=== PATIENT | female | born 1990 | race Caucasian/White ===

== ENCOUNTER 2024-01-17 10:09 | Emergency (ER) | payer OTHER, SELFPAY ==
--- NOTE | 2024-01-17 10:13 | ED.SKABFB ---
HPI - Skin/Abscess/Foreign Bdy General Chief complaint: Skin/Abscess/Foreign Body Stated complaint: ABSCESS Time Seen by Provider: 01/17/24 10:12 Source: patient Mode of arrival: ambulatory Limitations: no limitations History of Present Illness HPI narrative: Jaqueline is a 33-year-old female patient presenting to the clinic today with complaints of an abscess to her left lower glute area. She reports that this has been going on for a couple days now. She has been applying warm compresses and taking Tylenol Motrin as needed for pain. Thought that it may a rubbed on its own however is not started draining yet. Related Data Allergies Allergy/AdvReac Type Severity Reaction Status Date / Time No Known Allergies Allergy Verified 01/17/24 10:57 Review of Systems Review of Systems: Pertinent positives per HPI. Patient denies any fever, chills, rash, headache, visual changes, dizziness, cough, runny nose, sore throat, shortness of breath, chest pain, palpitations, nausea, vomiting, diarrhea, constipation, abdominal pain, or any urinary issues. PMFSH Comments At the time of my signature, I reviewed and agree with the nursing past medical, surgical, social, and family history. There is no relevant family history pertinent to the patient complaint. Exam Narrative: General: Well-developed, well nourished, in no apparent distress Head: Normocephalic, atraumatic. Cardio: Regular rate and rhythm, s1 and s2 normal, no murmur appreciated. Resp: Clear to auscultation bilaterally, no rhonchi, rales, wheezing or rubs. Integumentary: [place], warm, and dry, 2 x 3 cm abscess to the left inner lower glut. Large pustular lesion to the top of the abscess. Incision and drainage was performed and wound culture was obtained Course Course Emergency Course: Portions of this record may have been created with voice recognition software. Level of Care: Express Care Visit Vital Signs Vital signs: Vital Signs Temperature 36.3 C L 01/17/24 10:22 Pulse Rate 108 H 01/17/24 10:22 Respiratory Rate 16 01/17/24 10:22 Blood Pressure 127/92 H 01/17/24 10:22 Pulse Oximetry 99 01/17/24 10:22 Temperature 36.3 C L 01/17/24 10:22 Pulse Rate 108 H 01/17/24 10:22 Respiratory Rate 16 01/17/24 10:22 Blood Pressure 127/92 H 01/17/24 10:22 Pulse Oximetry 99 01/17/24 10:22 Vital signs reviewed Procedures Abscess I/D mireya-rectal: Date of Incision: 01/17/24 Side (if applicable): left (Glutual) Local Anesthetic: lidocaine 1% Amount of anesthesia used (mL): 2 Technique: incised with #11 blade Amount of fluid expressed (mL): 2 Irrigation: No Packing used?: none I&D Results: Pus and Blood Complications: other (None) Abcess I&D Additional Comments: Verbal consent obtained for incision and drainage. Risk and benefits explained and patient voiced understanding. Area was cleansed with antiseptic wound wash. Area was prepped and draped using sterile technique. 27 gauge needle was then used to instill (2) ml of lidocaine with epi into the wound edges. Patient tolerated well and anesthesia was appropriate. An 11 blade scalpel was then used to make a 0.5cm incision over the abscess. White bloody exudate expressed from cavity. Wound culture obtained and sent to lab. Patient tolerated procedure well. MDM - Skin/Abscess/Foreign Bdy MDM Narrative Medical decision making narrative: At the time of visit patient is resting comfortably on the exam table. Patient appears to be nontoxic. Procedures: Incision and drainage of abscess was performed. Wound culture was obtained and sent to the lab Plan: Incision and drainage was performed in the clinic to open gluteal abscess. Prescription for Augmentin was sent to the pharmacy. Recommend a wound check in 3 days Supportive measures were discussed with the patient and they voiced understanding discharge instructions and agr
[2024-01-17 10:22] VITALS: BP 127/92; PULSE 108; RESP 16; TEMP 36.3; O2SAT 99
[2024-01-17] MEDS: LIDOCAINE HCL 1% LOCAL INJ 2 ML AMPUL 10 ML INFILTRATE (10:43)
== END 2024-01-17 11:00 | disposition home or self-care (01) ==
PROVIDERS: Emergency Provider Nurse Practitioner Family; PCP Family Medicine
DX: L02.31 Cutaneous abscess of buttock (principal)
CPT/HCPCS: 10060; 87070; 87075; 87205; 99203; G0463; J2003

== ENCOUNTER 2024-05-15 11:07 | Outpatient (CLI) | payer OTHER, SELFPAY ==
--- NOTE | ~2024-05-15 | US_ITS ---
Pelvic ultrasound. Clinical History: First trimester , amenorrhea, establish dates and viability Technique: Realtime transabdominal and transvaginal scanning of the pelvis was performed. Color flow Doppler and Doppler spectral analysis were performed. Findings: The uterus is anteverted, and contains an intrauterine gestation. [place]-rump length of 1.9 cm corresponds to an estimated gestational age of 8 weeks 3 days. heart rate is 173 bpm. Neither ovary seen. No adnexal mass seen. There is no evidence of free fluid in the cul de sac. Impression: Live intrauterine gestation, with estimated gestational age of 8 weeks 3 days. heart rate is 17 3 bpm. Reviewed, dictated and finalized at location . CLEANER Impression: Live intrauterine gestation, with estimated gestational age of 8 weeks 3 days. heart rate is 173 bpm.
== END 2024-05-15 11:08 | disposition home or self-care (01) ==
LOC: MICIMG 11:07
PROVIDERS: PCP Family Medicine; Visit Provider Nurse Practitioner Obstetrics & Gynecology
DX: N91.2 Amenorrhea, unspecified (principal)
CPT/HCPCS: 76817

== ENCOUNTER 2024-11-19 18:09 | Emergency (ER) | payer OTHER, SELFPAY ==
[2024-11-19 18:10] VITALS: BP 145/87; PULSE 110; RESP 16; TEMP 36.7; O2SAT 98
--- OUTSIDE RECORDS SUMMARY | 2024-11-19 18:12 | XMS_ITS ---
Author Organization [facility] Source Produ ction (ClinicalSummary Clone) Address Unknown Care Team Providers Care Decorator Store Name Role Phone Unavailable Primary Care Physician Unavailab le Results * [UNITY] ANEUPLOIDY NIPT Performed by: [employer] Component Value Range Date Fraction 6.9% 06/30/2024 05 :50 am UTC 22q11.2 Microdeletion LOW RISK <1 in 10,000 06/30/2024 05:50 am UTC Sex Chromosome Aneuploidy NOT DETECTED 05:50 am UTC Monosomy X LOW RISK <1 in 10,000 2024 05:50 am UTC Trisomy 13 LOW RISK <1 in 10,000 2024 05:50 am UTC Trisomy 18 LOW RISK <1 in 10,000 2024 05:50 am UTC Trisomy 21 LOW RISK <1 in 10,000 2024 05:50 am UTC Sex FEMALE 06/30/2024 05:5 0 am UTC Gestation JUÁREZ 07/01/19 05:50 am UTC For detailed report, see PDF See PDF 06/30/2024 05:50 am UTC 06/30/2024 05:5 0 am UTC Social History Observation Value Start Date End Date
--- OUTSIDE RECORDS SUMMARY | 2024-11-19 18:12 | XMS_ITS | Continuity of Care Document ---
Author Organization [facility] Address [address] [place] [address] Phone Care Team Providers Care Traffic Personnel Supervisor Name Role Phone Kamran Collado MD Unavailable Unavailable Allergies, Adverse Reactions, Alerts Substance Reaction Status Criticality No Known Allergies Active No Inform ation Medications Medication Instructions Dosage Effective Dates (start - stop) Status Comments Zoloft 100 mg tablet take 1 tablet by oral route every day 100 MG - Active buspirone 10 mg tablet take 1 tablet by oral route 2 times every day as needed for anxiety - Active Mirena 20 mcg/24 hr (5 years) intrauterine device - Active inserted ?2014 Procedures Procedure Date OFFICE/OUTPATIENT VISIT, EST Flu Vaccine, Quadrivalent, Split, >3yrs TDAP VACCINE >7 IM OFFICE/OUTPATIENT VISIT, NEW Advance Directives Directive Yes / No Effective Date File Name No Information Encounters Encounter Description Practice Location Reason(s) For Visit Diagnoses Date Provider Providers Copied on Encounter [facility], [address] [facility], [place], [place], [facility], tel:[phone] Nelson FPOB No Information 0 8 Tobias Crockett [address], [place], [place], [facility], . tel:[phone] OFFICE/OUTPA TIENT VISIT, EST [facility], [address], [place], [place], [facility], tel:[phone] [facility] Anxiety (chief complaint) Fatigue, unspecified typeRecurrent major depressive disorder, in partial remission Jun-0 -201 7 Judy Parsons. [address], [address], [place], [place], [facility], . tel:[phone] [facility], [address] [facility], [place], [place], [facility], tel:[phone] [facility] Fatigue, unspecified typeRecurrent major depressive disorder, in partial remission Mar- 6 Thierno Do. [address] [facility], [address], [place], [place], [address] [place] [address], . tel:[phone] OFFICE/OUTPA TIENT VISIT, [facility], [address], [place], [place], [facility], tel:[phone] [facility] Nurse Comments (chief complaint) Anxiety (chief complaint) Fatigue, unspecified typeRecurrent major depressive disorder, in partial remission 6 Judy Parsons. [address], [address], [place], [place], [facility], . tel:[phone] Family History Family Member Type Diagnosis Age At Onset Mother Problem (finding) IBS Maternal grandmother Problem (finding) Heart disease Paternal grandmother Problem (finding) malignant neopl asm of lung Maternal grandmother Problem (finding) chronic obstruc tive lung disease Mother Problem (finding) chronic obstructive prabhakar g disease Father Problem (finding) Alive and well Problem (finding) Family history of Anxie ty Maternal grandmother Problem (finding) Anxiety Father Problem (finding) alcoholism Mother Problem (finding) hypertension Sister Problem (finding) Anxiety Immunizations Vaccine Date Status Comments Tdap administered Source: New Imm unization Record influenza, injectable, quadrivalent, (3 years or older) administered Source: New Immuniza tion Record Payers Payer name Insurance type Covered republican ID Authoriza tion(s) No Information Social History Type Description Quantity Date Captured Comments Alcohol Use Details No Caffeine Use Details coffee 2 cups per day Tobacco Use Status Heavy cigarette smok er (20-39 cigs/day) Smoking Status Heavy tobacco smoker Smoking Tobacco Use Details Cigarette: Age Started: 16 Cigarette: 1 Packs per day Sex Female Chief Complaint And Reason For Visit No Information Reason For Referral Reason For Referral No Information Plan Of Treatment Date Type Action Status Goal Breast exam. Due on 008 due Goal AQUATIC PHYSIOTHERAPIST exam. Due on due Goal Tdap due Goal PAP. Due on due Goal Preventive Exam, 19yr - 64 y r. Due on due Goal Depression screening. Due on due Goal Diabetes Screening. Due on due Goal Breast exam. Due on 008 due Goal Depression screening. Due on due Goal AQUATIC PHYSIOTHERAPIST exam. Due on due Goal Tdap due Goal Preventive Exam, 19yr - 64 y r. Due on due Goal PAP. Due on due Goal Lifestyle education regardin g diet completed History Of Present Illness Encounter Date Complaint History Of Prese nt Illness Anxiety This is a follow up visit. The date of the initial visit for this episode was 04/01/2016. There is continuation of initial symptoms. The patient reports functioning as somewhat difficult. The patient presents with diminished interest or pleasure, easily startled, excessive worry, feelings of guilt, poor judgment, racing thoughts and restlessness but denies difficulty falling asleep, difficulty staying asleep or thoughts of or suicide. The patient's risk factors include alcoholism, family history of depression, family history of anxiety, history of depression, relationship problems and unemployment. Additional information: On day 4 with no ETOH; flatly denies drug use -- almost 90 days (other than MJ)Off the carbamazapine -- using zoloft irregularly and buspar for social situations. 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 There is improvement of initial symptoms. The patient presents with anxious/fearful thoughts, depressed mood, difficulty concentrating, difficulty falling asleep, difficulty staying asleep, diminished interest or pleasure and restlessness but denies poor judgment or racing thoughts. The patient's risk factors include alcoholism, drug abuse, family history of depression, family history of anxiety, family history of bipolar disorder, financial worries and history of depression. The patient's risk factors exclude history of suicidal attempts and unemployment. The Anxiety is aggravated by alcohol use and lack of sleep but not with menstruation. The patient's relieving factors are alcohol. Additional information: began medication approx 2 months ago. pt has 10 days of rx left, will need refill soon. claudia in [place]. Nurse Comments pt was seeing [facility] - [phone] [place] Nurse Comments This is an initi al visit. The patient presents with anxious/fearful thoughts, depressed mood, difficulty concentrating, difficulty falling asleep, difficulty staying asleep, diminished interest or pleasure and restlessness but denies poor judgment or racing thoughts. Additional information: began medication approx 2 months ago. pt has 10 days of rx left, will need refill soon. danaymarily in [place]. Functional Status Date Functional Assessmen t No Information Instructions Date Instruction Additional Infor jose alberto Making short term go als1) Call [facility]2) Call Ashok2) Call Roopa up in 2 weeksLucretia/Sharon will help reach out in the meantimeWould like to get her in with psych for med stabilizationOn day 4 -- if any relapse, will consider inpatientCall with questions or concerns Related to Fatigue, unspecified type Discussed different options for herIOP with [facility] may be a good match so she can live at home, work and have treatment at the same time -- will call to make referralAgrees she needs to see psychiatry - will refill Zoloft for now and she will let me know if she needs any of the CarbamazepineSmall supply of buspar given to help with anxiety until she can see psychChecking labs todayImmunizations updatedWill plan for follow up based on referralsCall with questions or concerns Related to Fatigue, unspecified type Prescribed activity/exercise edu cation Related to Body mass index (BMI) 26.0-26.9, adult Lifestyle education regarding di et Related to Body mass index (BMI) 26.0-26.9, adult Assessments Type Assessment Date No Information Patient Care Teams Name Effective Dates (start - stop) Status Members No Information
--- OUTSIDE RECORDS SUMMARY | 2024-11-19 18:12 | XMS_ITS ---
Author Organization [facility] Source Produ ction (ClinicalSummary Clone) Address Unknown Care Team Providers Care Extrusion Machine Operator Name Role Phone Unavailable Primary Care Physician Unavailab le Results * [UNITY] CARRIER SCREEN Performed by: [email or web address] Component Value Range Date Sickle Cell Disease/Beta-Thalassemia/Hemo globinopathies carrier screen NEGATIVE 07/03/2024 08:16 pm UTC Alpha-Thalassemia carrier screen NEGATIVE 07/03/2024 08:16 pm UTC Cystic Fibrosis carrier screen NEGATIVE 07/03/2024 08:16 pm UTC Spinal Muscular Atrophy carrier screen NEGATIVE 2 SMN1 copies, SNP not present 07/03/2024 08:16 pm [place] For detailed report, see PDF See PDF 07/03/2024 08:16 pm UTC 07/03/2024 08:1 6 pm UT Social History Observation Value Start Date End Date
--- NOTE | 2024-11-19 18:17 | ED_ITS ---
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 Pt says it keeps bleeding so she came to ER. Occurred at 1100 today. tetanus UTD. Related Data Home Medications ?Medication ?Instructions ?Recorded ?Confirmed ?Last Taken ?Type dextroamphetamine-amphetamine 20 20 mg PO DAILY 05/11/24 05/11/24 Unknown History mg tablet (Adderall) paroxetine HCl 20 mg tablet (Paxil) 20 mg PO DAILY 05/11/24 05/11/24 Unknown History vitamin#30 30 mg iron-10 cap PO 05/11/24 05/11/24 Unknown History mg iron-folic acid 1 mg-omg3 capsule Allergies Allergy/AdvReac Type Severity Reaction Status Date / Time No Known Allergies Allergy Verified 05/11/24 11:52 Review of Systems Review of Systems: All systems reviewed & are unremarkable except as noted in HPI and below PMFSH Past Medical History Medical History (Updated 11/19/24 @ 18:44 by Calixto Fitzgerald III, DO) Basal cell carcinoma Arthritis Anxiety ADHD Surgical History Surgical History (Updated 05/11/24 @ 11:57 by Helene Hogan CMA) [place] teeth removed History of basal cell carcinoma (BCC) excision Family History Family History Mother Depression Father Alcoholism Sibling Depression Grandparent Depression Alcoholism Social History Social History Smoking status: Current every day smoker Tobacco type: cigarettes Alcohol intake: never Substance use: never Exam Const: General: healthy appearing and no acute distress Nutritional Appearance: well nourished Orientation/consciousness: patient oriented x3 Limitations: no limitations Chest: Chest palpation & inspection: normal inspection of the chest Resp: Effort & Inspection: normal respiratory effort Auscultation: clear to auscultation bilaterally Cardio: Rate: regular rate Rhythm: regular rhythm Skin: Other: 1 cm laceration middle phalynx left 2nd finger palmar surface flexion of finger intact. Neuro: General: patient oriented x3, moves all extremities, no meningeal signs and no focal motor deficits Speech: normal speech Extrem: General: normal to inspection and no clubbing, cyanosis or edema Psych: Mental Status: mental status grossly normal Affect: normal affect Attitude: cooperative Course Vital Signs Vital signs: Vital Signs Temperature 98.0 F 11/19/24 18:10 Pulse Rate 110 H 11/19/24 18:10 Respiratory Rate 16 11/19/24 18:10 Blood Pressure 145/87 H 11/19/24 18:10 Pulse Oximetry 98 11/19/24 18:10 Oxygen Delivery Room Air 11/19/24 18:10 Temperature 98.0 F 11/19/24 18:10 Pulse Rate 110 H 11/19/24 18:10 Respiratory Rate 16 11/19/24 18:10 Blood Pressure 145/87 H 11/19/24 18:10 Pulse Oximetry 98 11/19/24 18:10 Oxygen Delivery Room Air 11/19/24 18:10 Procedures Laceration Laceration 1: Site: hand Side (If applicable): left Size (cm): 1 Description: linear Depth: simple, single layer Local Anesthetic: lidocaine 1% Amount of anesthesia used (mL): 3 ====== Skin Level ====== Skin layer closed with: nylon Size (cm): 4-0 Number of sutures: 4 Technique: simple, interrupted ====== Subcutaneous Layer ====== ====== Muscle Layer ====== ====== Tendon Layer ====== MDM - Wound/Laceration MDM Narrative Medical decision making narrative: Pt has small laceration to left index finger. bleeding controlled at moment. will suture. Discharge Plan Discharge Clinical Impression: Laceration Patient Disposition: Home Condition: Improved Instructions: Antibiotic Form, Care For Your Stitches (ED), Laceration (ED) Additional Instructions: suture removal 7-10 days Patient Language: Macedonian Prescriptions: No Action dextroamphetamine-amphetamine [Adderall] 20 mg tablet 20 mg PO DAILY paroxetine HCl [Paxil] 20 mg tablet 20 mg PO DAILY PNV #[id number] acid-omega3 30 mg iron-10 mg iron-1 mg capsule PO Follow-up/Referrals: Sylvester Shoemaker M.D. [Primary Care Provider] -
[2024-11-19] MEDS: LIDOCAINE 1% LOCAL INJ 10 ML VIAL 5 ML INFILTRATE (18:25)
--- OUTSIDE RECORDS SUMMARY | 2024-11-19 18:29 | XMS_ITS | Continuity of Care Document ---
Author Organization [facility] Address [address] [place] [address] Phone Care Team Providers Care Telephone Surveyor Name Role Phone Kamran Collado MD Unavailable [...] Diagnoses Date Provider Providers Copied on Encounter [facility], [email or web address] [facility], [place], [place], [facility], tel:[phone] Nelson FPOB No Information 0 8 Tobias Crockett [address], [place], [place], [facility], . tel:[phone] OFFICE/OUTPA TIENT VISIT, EST [facility], [address] [facility] [email or web address], [place], [place], [facility], tel:[phone] [facility] Anxiety (chief complaint) Fatigue, unspecified typeRecurrent major depressive disorder, in partial remission Jun-0 -201 7 Judy Parsons. [address] [facility], [address], [place], [place], [facility], . tel:[phone] 1881 [facility], [address] [facility], [place], [place], [facility], tel:[phone] [facility] Fatigue, unspecified typeRecurrent major depressive disorder, in partial remission Mar- 6 Thierno Do. [address] [facility], [address], [place], [place], [address] [place] [address], . tel:[phone] OFFICE/OUTPA TIENT VISIT, [facility], [address], [place], [place], [facility], tel:[phone] [facility] Nurse Comments (chief complaint) Anxiety (chief complaint) Fatigue, unspecified typeRecurrent major depressive disorder, in partial remission 6 Judy Parsons. [address], [address], [place], [place], [facility], . tel:[phone] Family History Family Member Type Diagnosis Age [...] Record Payers Payer name Insurance type Covered libertarian ID Authoriza tion(s) No Information Social History [...] Of Treatment Date Type Action Status Goal Depression screening. Due on due Goal Preventive Exam, 19yr - 63 y r. Due on due Goal PAP. Due on due Goal Breast exam. Due on 008 due Goal Tdap due Goal GLASS TOUGHENING OPERATOR exam. Due on due Goal PAP. Due on due Goal Preventive Exam, 19yr - 63 y r. Due on due Goal Tdap due Goal GLASS TOUGHENING OPERATOR exam. Due on due Goal Depression screening. Due on due Goal Breast exam. Due on 008 due Goal Diabetes Screening. Due on due Goal Lifestyle education regardin [...] zoloft irregularly and buspar for social situations. Nurse Comments This is an initi al visit. The patient presents with anxious/fearful thoughts, depressed mood, difficulty concentrating, difficulty falling asleep, difficulty staying asleep, diminished interest or pleasure and restlessness but denies poor judgment or racing thoughts. Additional information: began medication approx 2 months ago. pt has 10 days of rx left, will need refill soon. claudia in [place]. Nurse Comments pt [phone] Anxiety(comments) Happy to be ho me with mom and wants to really sort out what was going on in [place]; feels better with removed triggers and people [...] left, will need refill soon. claudia in [place]. Functional Status Date Functional Assessmen t No [...] type Discussed different options for herIOP with [facility] may be a good match [...]
[2024-11-19] MEDS: NEOMYCIN/POLYMYXIN/BACITRACIN OINTMENT PACKET 1 PACKET TOPICAL (18:51)
[2024-11-19 18:55] VITALS: BP 137/88
== END 2024-11-19 18:55 | disposition home or self-care (01) ==
PROVIDERS: Emergency Provider Emergency Medicine; PCP Family Medicine
DX: S61.211A Laceration without foreign body of left index finger without damage to nail, initial encounter (principal); F17.210 Nicotine dependence, cigarettes, uncomplicated; W26.8XXA Contact with other sharp object(s), not elsewhere classified, initial encounter
CPT/HCPCS: 12001; 99282; J2003